=== PATIENT | female | born 1985 | race Caucasian/White ===

== ENCOUNTER 2018-03-27 12:22 | Emergency (ER) | payer OTHER | END 2018-03-27 13:09 | disposition home or self-care (01) | LOC: FTE 12:22 | DX: J02.9 Acute pharyngitis, unspecified (principal) | CPT/HCPCS: 99283; Z7502 ==

== ENCOUNTER 2018-04-30 18:33 | Emergency (ER) | payer OTHER ==
[2018-04-30] MEDS: morphine 4 MG/ML VIAL IV (19:05)
[2018-04-30] MEDS: ONDANSETRON 4 MG INJ IV (19:05)
[2018-04-30] MEDS: SOD CHLORIDE 0.9% 1,000 ML IV ×2 (19:07→21:25)
[2018-04-30 19:15] LABS: ADD MAN DIFF? NO
[2018-04-30 19:20] LABS: BASOPHILS % 0.4 % (0.0-2.0); EOSINOPHILS # 0.1 10^3/ul (0.0-0.5); EOSINOPHILS % 1.1 % (0.0-7.0); HEMATOCRIT 38.7 % (37.0-47.0); LYMPHOCYTES # 2.3 10^3/ul (0.8-2.9); LYMPHOCYTES % 24.9 % (15.0-51.0); MEAN CORPUSCULAR HEMOGLOBIN 29.3 pg (29.0-33.0); MEAN CORPUSCULAR HGB CONC 33.6 g/dl (32.0-37.0); MEAN CORPUSCULAR VOLUME 87.2 fl (82.0-101.0); MEAN PLATELET VOLUME 10.8 fl (7.4-10.4); MONOCYTE # 0.6 10^3/ul (0.3-0.9); MONOCYTES % 6.6 % (0.0-11.0); NEUTROPHILS % 66.8 % (39.0-77.0); PLATELET COUNT 295 10^3/UL (140-415); RED BLOOD COUNT 4.44 10^6/ul (4.20-5.40); RED CELL DISTRIBUTION WIDTH 12.6 % (11.5-14.5)
[2018-04-30 19:20] LABS: WHITE BLOOD COUNT 9.1 10^3/ul (4.8-10.8)
[2018-04-30 19:37] LABS: ANION GAP 14 (8-16); BLOOD UREA NITROGEN 17 mg/dl (7-20); CALCIUM 9.6 mg/dl (8.4-10.2); CARBON DIOXIDE 23 mmol/L (21-31); CHLORIDE 107 mmol/L (97-110); GLUCOSE 100 mg/dl (70-220); SODIUM 140 mmol/L (135-144)
[2018-04-30 20:33] LABS: INR 1.02; PROTIME 13.5 Sec (11.9-14.9); PT RATIO 1.1
[2018-04-30 20:34] LABS: PARTIAL THROMBOPLASTIN TIME 28.2 Sec (25.0-35.0)
[2018-04-30] MEDS: HYDROmorphONE 0.5 MG/0.5 ML SYG IV (21:18)
[2018-04-30] MEDS: KETOROLAC 15 MG INJ IV (21:19)
== END 2018-04-30 23:40 | disposition home or self-care (01) ==
LOC: FTE 18:33
DX: R51 Headache (principal); R11.0 Nausea
CPT/HCPCS: 36415; 70450; 80048; 81025; 85025; 85610; 85730; 96361; 96374; 96375; 99285-25

== ENCOUNTER 2018-08-29 11:54 | Emergency (ER) | payer OTHER ==
[2018-08-29 14:43] LABS: URINE BLOOD (Dip) POC Trace-intact (NEGATIVE); URINE GLUCOSE (Dip) POC Negative (NEGATIVE); URINE KETONES (Dip) POC Negative (NEGATIVE); URINE LEUKOCYTE EST (Dip) POC Trace (NEGATIVE); URINE NITRITE (Dip) POC Negative (NEGATIVE); URINE TOTAL PROTEIN POC Negative (NEGATIVE)
[2018-08-29 14:43] LABS: URINE PH (Dip) POC 6.5 (5.0-8.5)
[2018-08-29 14:53] LABS: ADD MAN DIFF? NO
[2018-08-29 14:57] LABS: BASOPHILS % 0.4 % (0.0-2.0); EOSINOPHILS # 0.1 10^3/ul (0.0-0.5); EOSINOPHILS % 0.8 % (0.0-7.0); HEMATOCRIT 44.4 % (37.0-47.0); HEMOGLOBIN 14.6 g/dl (12.0-16.0); LYMPHOCYTES # 1.9 10^3/ul (0.8-2.9); LYMPHOCYTES % 21.6 % (15.0-51.0); MEAN CORPUSCULAR HEMOGLOBIN 28.5 pg (29.0-33.0); MEAN CORPUSCULAR HGB CONC 32.9 g/dl (32.0-37.0); MEAN CORPUSCULAR VOLUME 86.7 fl (82.0-101.0); MEAN PLATELET VOLUME 10.7 fl (7.4-10.4); MONOCYTE # 0.4 10^3/ul (0.3-0.9); MONOCYTES % 4.2 % (0.0-11.0); NEUTROPHIL # 6.5 10^3/ul (1.6-7.5); NEUTROPHILS % 72.7 % (39.0-77.0); PLATELET COUNT 279 10^3/UL (140-415); RED BLOOD COUNT 5.12 10^6/ul (4.20-5.40); RED CELL DISTRIBUTION WIDTH 12.3 % (11.5-14.5)
[2018-08-29] MEDS: SOD CHLORIDE 0.9% 1,000 ML IV (14:59)
[2018-08-29] MEDS: ONDANSETRON 4 MG INJ IV (14:59)
[2018-08-29] MEDS: morphine 2 MG INJ IV (15:00)
[2018-08-29 15:15] LABS: PROTIME 13.3 Sec (11.9-14.9)
[2018-08-29 15:16] LABS: PARTIAL THROMBOPLASTIN TIME 29.8 Sec (23.0-35.0)
[2018-08-29 15:21] LABS: ANION GAP 11 (5-13); BLOOD UREA NITROGEN 9 mg/dl (7-20); CALCIUM 9.6 mg/dl (8.4-10.2); CARBON DIOXIDE 27 mmol/L (21-31); CHLORIDE 103 mmol/L (97-110); CREATININE 0.57 mg/dl (0.44-1.00); Estimated GFR > 60 mL/min (>60); GLUCOSE 96 mg/dl (70-220); POTASSIUM 3.8 mmol/L (3.5-5.1); SODIUM 141 mmol/L (135-144)
[2018-08-29] MEDS: KETOROLAC 30 MG INJ IV (16:45)
[2018-08-29] MEDS: MECLIZINE 12.5 MG TAB PO (16:45)
== END 2018-08-29 16:47 | disposition home or self-care (01) ==
LOC: E/R 11:54
DX: R42 Dizziness and giddiness (principal); R51 Headache
CPT/HCPCS: 36415; 70450; 80048; 81003; 81025; 85025; 85610; 85730; 93005; 96374; 96375; 99285-25